=== PATIENT | male | born 1990 | race Two or more races ===

== ENCOUNTER 2019-04-09 14:14 | Emergency (ER) | payer SELFPAY ==
--- NOTE | 2019-04-09 14:43 | EDM.PDOC ---
ED HPI GENERAL MEDICAL PROBLEM - General Chief Complaint: Behavioral/Psych Stated Complaint: MENTAL HEALTH EVAL Time Seen by Provider: 04/09/19 14:32 - History of Present Illness INITIAL COMMENTS - FREE TEXT/NARRATIVE: 29 male brought in by police, he is not in custody, with suicidal ideation. Patient is been upset he made threats on social needing pages threatening to kill himself by shooting himself. The patient had been drinking heavily last night. The patient states he is quite upset over a semi-recent breakup with a woman who electively aborted their child. He claims he doesn't drink on a regular basis. But he drank very heavily last night. And got a DUI 2 weeks ago. At the time of my evaluation he denies that he's really get hurt himself. However please did bring him in and stated that he said while he was in route here that he was just getting shooting himself in the head. With talking to him he states that every day 21 or 20 veterans kill themselves he would just be another one of them. However the patient has never served in the [employer]. The patient is very difficult to get a history from. Some of the history is obtained from the officer and the officer insisting the patient tell the truth. 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) ED ROS GENERAL - Review of Systems Review Of Systems: See Below Constitutional: Reports: No Symptoms HEENT: Reports: No Symptoms Respiratory: Reports: No Symptoms Cardiovascular: Reports: No Symptoms Endocrine: Reports: No Symptoms GI/Abdominal: Reports: No Symptoms : Reports: No Symptoms Musculoskeletal: Reports: No Symptoms Skin: Reports: No Symptoms Neurological: Reports: No Symptoms Psychiatric: Reports: No Symptoms Hematologic/Lymphatic: Reports: No Symptoms Immunologic: Reports: No Symptoms ED EXAM, NEURO - Physical Exam Exam: See Below Exam Limited By: No Limitations General Appearance: Alert, No Apparent Distress Eye Exam: Bilateral Eye: EOMI, Normal Inspection, PERRL Ears: Normal External Exam, Normal Canal, Hearing Grossly Normal, Normal TMs Nose: Normal Inspection, Normal Mucosa, No Blood Throat/Mouth: Normal Inspection, Normal Lips, Normal Teeth, Normal Gums, Normal Oropharynx, Normal Voice, No Airway Compromise Head Exam: Atraumatic, Normocephalic Neck: Normal Inspection, Supple, Non-Tender, Full Range of Motion Respiratory/Chest: No Respiratory Distress, Lungs Clear, Normal Breath Sounds, No Accessory Muscle Use, Chest Non-Tender Cardiovascular: Normal Peripheral Pulses, Regular Rate, Rhythm, No Edema, No Gallop, No JVD, No Murmur, No Rub GI/Abdominal: Normal Bowel Sounds, Soft, Non-Tender, No Organomegaly, No Distention, No Abnormal Bruit, No Mass Neurological: Alert Back Exam: Normal Inspection, Full Range of Motion. No: CVA Tenderness (L), CVA Tenderness (R) Extremities: Normal Inspection, Normal Range of Motion, Non-Tender, No Pedal Edema. No: Pedal Edema Psychiatric: Other (Patient has some is our behavior he claims he doesn't have any family he is attached to the officer brings him in and refers to him as a friend. In the way he describes his personal relationships where he jumps and full force and then feels rejected when things don't work out.) Course - Vital Signs Last Recorded V/S: Last Vital Signs Temp 36.9 C 04/09/19 14:22 Pulse 83 04/09/19 14:22 Resp 20 04/09/19 14:22 BP 142/90 H 04/09/19 14:22 Pulse Ox 96 04/09/19 14:22 - Orders/Labs/Meds Labs: Laboratory Tests 04/09/19 04/09/19 04/09/19 Range/Units 15:45 15:45 15:45 WBC 4.40 (4.23-9.07) K/mm3 RBC 5.77 (4.63-6.08) M/mm3 Hgb 17.4 (13.7-17.5) gm/L Hct 52.0 H (40.1-51.0) % MCV 90.1 (79.0-92.2) fl MCH 30.2 (25.7-32.2) pg MCHC 33.5 (32.2-35.5) g/dl RDW Std Deviation 46.6 H (35.1-43.9) fL Plt Count 237 (163-337) K/mm3 MPV 9.7 (9.4-12.3) fl Neutrophils % (Manual) 53 (40-60) % Band Neutrophils % 0 (0-10) % Lymphocytes % (Manual) 36 (20-40) % Atypical Lymphs % 0 % Monocytes % (Manual) 7 (2-10) % Eosinophils % (Manual) 1 (0.8-7.0) % Basophils % (Manual) 3 H (0.2-1.2) Platelet Estimate Adequate RBC Morph Comment Normal PT 10.3 (9.7-12.0) SECONDS INR 0.94 Sodium 145 (136-145) mEq/L Potassium 4.0 (3.5-5.1) mEq/L Chloride 107 (98-107) mEq/L Carbon Dioxide 26 (21-32) mEq/L Anion Gap 16.0 H (5-15) BUN 13 (7-18) mg/dL Creatinine 1.1 (0.7-1.3) mg/dL Est Cr Clr Drug Dosing 113.13 mL/min Estimated GFR (MDRD) > 60 (>60) mL/min BUN/Creatinine Ratio 11.8 L (14-18) Glucose 119 H (74-106) mg/dL Calcium 9.0 (8.5-10.1) mg/dL Total Bilirubin 0.2 (0.2-1.0) mg/dL AST 19 (15-37) U/L ALT 36 (16-63) U/L Alkaline Phosphatase 61 (46-116) U/L Total Protein 7.8 (6.4-8.2) g/dl Albumin 4.4 (3.4-5.0) g/dl Globulin 3.4 gm/dL Albumin/Globulin Ratio 1.3 (1-2) TSH 3rd Generation 0.454 (0.358-3.74) uIU/mL Urine Color (Yellow) Urine Appearance (Clear) Urine pH (5.0-8.0) Ur Specific [place] (1.005-1.030) Urine Protein (Negative) Urine Glucose (UA) (Negative) Urine Ketones (Negative) Urine Occult Blood (Negative) Urine Nitrite (Negative) Urine Bilirubin (Negative) Urine Urobilinogen (0.2-1.0) Ur Leukocyte Esterase (Negative) Urine RBC (0-5) /hpf Urine WBC (0-5) /hpf Ur Squamous Epith Cells (0-5) /hpf Urine Bacteria (FEW) /hpf Urine Mucus (FEW) /hpf Urine Opiates Screen (CLKNXV=102) Ur Buprenorphine Scrn (CUTOFF=10) Ur Oxycodone Screen (MGE1QA=222) Urine Methadone Screen (PPV2MF=305) Ur Propoxyphene Screen (BKGBIJ=391) Ur Barbiturates Screen (GDSBKC=399) Ur Tricyclics Screen (EIBXRF=319) Ur Phencyclidine Scrn (CUTOFF=25) Ur Amphetamine Screen (KYXPXM=774) U Methamphetamines Scrn (ALTIYA=509) U Benzodiazepines Scrn (OBVMMU=744) U Cocaine Metab Screen (TCVWBC=583) U Marijuana (THC) Screen (CUTOFF=50) Ethyl Alcohol 0.33 (0.00) gm% 04/09/19 04/09/19 Range/Units 15:54 15:54 WBC (4.23-9.07) K/mm3 RBC (4.63-6.08) M/mm3 Hgb (13.7-17.5) gm/L Hct (40.1-51.0) % MCV (79.0-92.2) fl MCH (25.7-32.2) pg MCHC (32.2-35.5) g/dl RDW Std Deviation (35.1-43.9) fL Plt Count (163-337) K/mm3 MPV (9.4-12.3) fl Neutrophils % (Manual) (40-60) % Band Neutrophils % (0-10) % Lymphocytes % (Manual) (20-40) % Atypical Lymphs % % Monocytes % (Manual) (2-10) % Eosinophils % (Manual) (0.8-7.0) % Basophils % (Manual) (0.2-1.2) Platelet Estimate RBC Morph Comment PT (9.7-12.0) SECONDS INR Sodium (136-145) mEq/L Potassium (3.5-5.1) mEq/L Chloride (98-107) mEq/L Carbon Dioxide (21-32) mEq/L Anion Gap (5-15) BUN (7-18) mg/dL Creatinine (0.7-1.3) mg/dL Est Cr Clr Drug Dosing mL/min Estimated GFR (MDRD) (>60) mL/min BUN/Creatinine Ratio (14-18) Glucose (74-106) mg/dL Calcium (8.5-10.1) mg/dL Total Bilirubin (0.2-1.0) mg/dL AST (15-37) U/L ALT (16-63) U/L Alkaline Phosphatase (46-116) U/L Total Protein (6.4-8.2) g/dl Albumin (3.4-5.0) g/dl Globulin gm/dL Albumin/Globulin Ratio (1-2) TSH 3rd Generation (0.358-3.74) uIU/mL Urine Color Light yellow (Yellow) Urine Appearance Clear (Clear) Urine pH 6.0 (5.0-8.0) Ur Specific [place] 1.015 (1.005-1.030) Urine Protein Negative (Negative) Urine Glucose (UA) Negative (Negative) Urine Ketones Negative (Negative) Urine Occult Blood Negative (Negative) Urine Nitrite Negative (Negative) Urine Bilirubin Negative (Negative) Urine Urobilinogen 0.2 (0.2-1.0) Ur Leukocyte Esterase Negative (Negative) Urine RBC 0-5 (0-5) /hpf Urine WBC Not seen (0-5) /hpf Ur Squamous Epith Cells Not seen (0-5) /hpf Urine Bacteria Rare (FEW) /hpf Urine Mucus Not seen (FEW) /hpf Urine Opiates Screen Negative (TARJYD=016) Ur Buprenorphine Scrn Negative (CUTOFF=10) Ur Oxycodone Screen Negative (XNT7PY=055) Urine Methadone Screen Negative (XTU1QG=808) Ur Propoxyphene Screen Negative (FTDCUC=814) Ur Barbiturates Screen Negative (OKVMNR=893) Ur Tricyclics Screen Negative (KSLQZY=309) Ur Phencyclidine Scrn Negative (CUTOFF=25) Ur Amphetamine Screen Negative (XPFYUF=932) U Methamphetamines Scrn Negative (BKZJWA=930) U Benzodiazepines Scrn Negative (BUDXBL=725) U Cocaine Metab Screen Negative (YTKOYQ=511) U Marijuana (THC) Screen Negative (CUTOFF=50) Ethyl Alcohol (0.00) gm% Meds: Medications Discontinued Medications Generic Name Dose Route Start Last Admin Trade Name Gerardo PRN Reason Stop Dose Admin Folic Acid 1 mg 04/10/19 16:57 Folic Acid IV 04/10/19 16:58 ONETIME ONE Lactated Ringer's 1,000 mls @ 150 mls/hr 04/09/19 17:00 Ringers, Lactated IV ASDIRECTED HUMAIRA Thiamine HCl 100 mg/ Sodium 101 mls @ 202 mls/hr 04/09/19 16:56 Chloride IV 04/09/19 16:57 ONETIME ONE Magnesium Sulfate 2 gm/ Premix 50 mls @ 25 mls/hr 04/09/19 16:58 IV 04/09/19 18:57 ONETIME ONE - Re-Assessments/Exams Free Text/Narrative Re-Assessment/Exam: 04/09/19 18:22 With a long discussion with the patient the officer and I the patient agreed to stay in the department as we continued his workup however the patient shortly eloped after the officer left at this point he is cleared medically to go to detox at the [facility]. He can be evaluated by [facility] in the morning if law enforcement can find him. I did call the crisis line at [facility] to give them a heads up. Departure - Departure Time of Disposition: 17:00 Disposition: Eloped 07 Clinical Impression: Suicidal intent, Alcohol intoxication - Discharge Information Referrals: PCP,None [Primary Care Provider] - Forms: ED Department Discharge
[2019-04-09] MEDS ORDERED: Thiamine 100 MG in Sodium Chloride 0.9% 100 ML IV ONE (16:56)
[2019-04-09] MEDS ORDERED: Magnesium Sulfate/Water 2 GM in Premix Bag 1 BAG IV ONE (16:58)
[2019-04-09] MEDS ORDERED: Lactated Ringers 1,000 ML IV SCH (17:00)
[2019-04-10] MEDS ORDERED: Folic Acid 50 MG/10 ML MDV IV ONE (16:57)
== END 2019-04-09 17:08 | disposition left against medical advice (07) ==
LOC: JD.ED 14:14
DX: R45.851 Suicidal ideations (principal); F10.129 Alcohol abuse with intoxication, unspecified; Y90.8 Blood alcohol level of 240 mg/100 ml or more; F41.9 Anxiety disorder, unspecified; F32.9 Major depressive disorder, single episode, unspecified; Z79.899 Other long term (current) drug therapy
CPT/HCPCS: 36415; 80053; 80306; 81001; 84443; 85007; 85027; 85610; 99285; G0480